=== PATIENT | female | born 1990 | race Caucasian/White ===

== ENCOUNTER 2023-06-15 10:10 | Outpatient (CLI) | payer OTHER, SELFPAY ==
[2023-06-15 10:43] LABS: SPREG INTERNAL CONTROL Positive; Serum Qual hCG Negative
== END 2023-06-15 10:11 | disposition home or self-care (01) ==
LOC: CHSLAB 10:15
PROVIDERS: PCP Family Medicine; Visit Provider Nurse Practitioner Family
DX: N91.2 Amenorrhea, unspecified (principal); N64.52 Nipple discharge
CPT/HCPCS: 36415; 84703